=== PATIENT | male | born 1990 | race Caucasian/White ===

== ENCOUNTER → 2021-12-11 | Outpatient (CLI) | payer OTHER ==
[~2021-12-11] VITALS: Ht 170.2 cm; Wt 63.5 kg
[~2021-12-11] MED LIST: REGADENOSON 0.4 MG/5 ML DISP.SYRIN. IV ONE; SINCALIDE 1.27 MCG in IV NORMAL SALINE 50ML 30 ML IV ONE
--- NOTE | 2021-12-11 10:44 | RAD ---
EXAM: Nuclear hepatobiliary scan. HISTORY: Pain. TECHNIQUE: Following intravenous administration of 5.0 mCi Tc 99m Choletec, anterior images of the ab domen were obtained at five minute intervals through one hour. Subsequently, 1.3 mcg Kinevac was admi nistered and additional images to assess gallbladder ejection fraction were obtained. FINDINGS: There is prompt radiotracer uptake by the liver. No focal defect is seen. There is normal e xcretion into the biliary tree. The gallbladder is visualized within 10 minutes and there is free kelly w into the duodenum. The gallbladder ejection fraction is 94 percent. IMPRESSION: High gallbladder ejection fraction of 94 percent.. Electronically signed by: Katalina Hewitt MD (12/11/2021 10:42 AM) [id number]
== END ==
LOC: NM 07:59
PROVIDERS: ATTEND Internal Medicine Gastroenterology
DX: R10.13 Epigastric pain (principal)
CPT/HCPCS: 78227; A9537; J2805